=== PATIENT | female | born 1965 | race Caucasian/White ===

== ENCOUNTER → 2016-04-12 | Outpatient (CLI) | payer BC ==
[~2016-04-12] MED LIST: ANAS1TAB19 PO; BUPR200T2 PO; BUSP30TA2; CHOL100010 PO; DULO60CA44 PO; KLN5X; LAMO200T38 PO; LAMO25TA PO
[2016-04-12 14:35] VITALS: BP 108/73; PULSE 70; TEMP 36.8; O2SAT 96
--- NOTE | 2016-04-12 15:42 | Radiation Oncology Follow-Up ---
Radiation Oncology Follow-Up Date of Visit Apr 12, 2016. Reason For Visit Annual follow-up Radiation Completion Date finished 08-06-2014 Diagnosis (1) Breast cancer Status: Resolved Onset Date: 05/06/2014 Location: right breast Histology Subtype: ductal Stage: l (A) Permanent Comment: Status post bilateral breast reduction surgery Abnormal right breast mammogram 04/17/2014 Status post core biopsy 05/06/2014 revealing invasive ductal carcinoma grade 1 Estrogen receptor positive, progesterone receptor positive, HER-2/angelita negative Status post partial mastectomy with sentinel lymph node biopsy 06/03/2014 Pathologic stage [id number] BRCA1 and BRCA2 testing negative Oncotype DX score of 22 Status post completion of radiation therapy 08/06/2014 utilizing accelerated partial breast treatment received 3850 cGy Last Edited By: Neeta Nieves on Apr 12, 2016 15:16 History of Present Illness Ms. Comer is a 51-year-old female with a remote family history of breast cancer. The patient's maternal grandmother had breast cancer with metastatic disease to the bone. She has been followed with screening mammograms. These include studies on 08/23/2009 11/10/2010 and 11/29/2011. All these were performed at [facility]. On 04/17/2014 the patient underwent bilateral screening mammograms. In the right breast a mild asymmetry versus possible summation at the middle depth 9 o'clock position was noted. Additional projections and spot compression views were recommended. On 01/26/2015 patient underwent a right breast unilateral limited diagnostic mammogram and targeted breast ultrasound. These studies showed a solid mass measuring 0.4 x 0.4 x 0.4 cm located at the site of a mammographic abnormality at Patient: RYLEE COMER Admit Date: 07/17/14 [facility] Rec: [id number] Acct ID: [id number] Page: 1 the 9 o'clock position 4 cm from the nipple. These were felt to be suspicious for malignancy and a biopsy was recommended. The patient underwent a biopsy on 05/11/2014 through [facility] that revealed an invasive ductal carcinoma nuclear grade 1. The biopsy was of the right breast 9 o'clock position 3-4 cm from the nipple. Estrogen receptors were strongly positive (100%) progesterone receptors were moderately positive (50%). HER-2/ angelita uncle protein expression is negative by IHC. Accession #: [id number]. The patient underwent staging bilateral breast MRIs on 05/19/2014. In the right breast middle one third depth 9 o'clock position and area of masslike enhancement was noted measuring 0.8 x 0.7 x 0.5 cm compatible with the patient's biopsyproven malignancy. This mass is 5.2 cm posterior to the nipple and 3.2 cm anterior to the chest wall. The remainder of the right breast is normal. Left breast reveals no abnormal enhancements no left axillary adenopathy. No right axillary adenopathy was appreciated. The slides from [facility] reviewed at the [facility]. It confirmed invasive ductal carcinoma NOS nuclear grade 1 with no lymphovascular invasion, ER positive CA positive HER-2/ angelita negative. AG 0S [id number]. The patient proceeded with a right breast lumpectomy at the [facility] on 06/03/2014. A sentinel lymph node was obtained and was negative. The partial mastectomy specimen confirmed invasive ductal carcinoma moderate nuclear grade with DCIS solid type moderate nuclear grade. The margins were ultimately negative. AG [id number]. AJCC pathologic stage was pT1a pN0. An Oncotype DX test was ordered. This ultimately came back with a recurrent score of 22 placing her in the low intermediate risk category with a 10 year risk of distant recurrence with tamoxifen alone of 14%. Based on this information no adjuvant chemotherapy was recommended with adjuvant hormonal therapy recommended. Patient was seen by Dr. Sarmiento for discussion of the role of adjuvant therapy. He noted the patient had undergone BRCA1 and BRCA2 mutation testing and this was negative no chemotherapy was again recommended and hormonal therapy was suggested that this would start once she has completed her adjuvant radiation. She was found to be a good candidate for accelerated partial breast treatment. She received 3850 cGy completed 08/06/2014. Interim History She's been doing well over this past year. She denies any changes to her breast. She has noted no masses or tenderness no change of the axilla. She's had no swelling of her arm. She was last seen and had mammography in [place] May of last year. She is going to check her schedule but she is quite certain that she has an appointment and a mammogram scheduled for May of this year. She is on Arimidex and denies side effects. Allergies Coded Allergies: Ampicillin (Unverified Allergy, Intermediate, hives, 07/17/14) Home Medications Scheduled Anastrozole (Arimidex), 1 MG PO DAILY Bupropion (Wellbutrin Sr), 200 MG PO DAILY Buspirone Hcl (Buspirone Hcl), DAILY Cholecalciferol (Vitamin D), 5,000 INTER.UNIT PO DAILY Clonazepam (Clonazepam), prn Duloxetine Hcl (Cymbalta), 90 MG PO DAILY Lamotrigine (Lamictal), 200 MG PO AM Lamotrigine (Lamictal), 50 MG PO HS Review of Systems Gastrointestinal: Symptoms: WNL Oral: Symptoms: No Problems Respiratory: Symptoms: WNL Urinary: Symptoms: Nocturia Comments: occ nocturia Skin: Symptoms: No Problems Breast: Right Upper Arm Measurement: 28.5 Right Mid Arm Measurement: 25.5 Right Wrist Measurement: 16.5 Left Upper Arm Measurement: 30.5 Left Mid Arm Measurement: 24.0 Left Wrist Measurement: 16.7 Arm Dominence: Right Patient Cosmetic Evaluation: Good Staff Cosmetic Evalaluation: Excellent Physical Exam Vital Signs Date Time Temp Pulse Resp B/P Pulse Ox O2 Delivery O2 Flow Rate FiO2 04/12/16 14:35 36.8 70 18 108/73 96 Pain: Side: Bilateral Patient Pain Scale: 0 - 10 Initial Pain Intensity: 0.0 Fatigue: None General Appearance: no apparent distress Eyes: normal inspection, EOMI ENT: normal ENT inspection, hearing grossly normal Neck: no adenopathy Respiratory/Chest: lungs clear, no respiratory distress, no accessory muscle use Breast: Breast examination reveals bilateral breast reduction. On the right there are no masses or tenderness no axillary adenopathy. She has no hyperpigmentation. There are no skin retractions. Left breast shows no masses or tenderness and no axillary adenopathy. Using the Bangor score cosmesis she has a an excellent outcome. Cardiovascular: regular rate, rhythm, no gallop, no murmur Abdomen: non tender Extremities: no pedal edema Neurologic/Psychiatric: no motor/sensory deficits, alert, normal mood/affect Skin: warm/dry Lymphatic: no adenopathy Additional Studies She had a mammogram 05/28/2015 at [facility]. This showed no finding of malignancy bilaterally recommendation was for annual mammogram. BI-RADS Category 2 Assessment & Plan Plan: Continue annual mammography and follow-up visits in [place]. This is scheduled for March. Continue regular follow-up with her PCP. She also follows with Dr. Sarmiento medical oncology. She continues on Arimidex. We asked her to return to our office in 1 year. She may call if she has any questions or concerns in the interim. Total Time In Follow-Up I spent 15 minutes speaking to the patient performing examination. I sent 15 minutes reviewing information and completing this note. Copy To Addy Song M.D.; Sridhar Sarmiento M.D.
== END | disposition home or self-care (01) ==
LOC: C.ONC 14:27
PROVIDERS: ATTEND Radiology Radiation Oncology
DX: Z08 Encounter for follow-up examination after completed treatment for malignant neoplasm (principal); Z92.3 Personal history of irradiation; Z85.3 Personal history of malignant neoplasm of breast

== ENCOUNTER → 2017-04-17 | Outpatient (CLI) | payer OTHER ==
[~2017-04-17] MED LIST changes: +LAMO200T35 PO; -LAMO200T38 PO
[2017-04-17 14:30] VITALS: BP 125/56; PULSE 56; TEMP 36.2; O2SAT 97
--- NOTE | 2017-04-17 17:00 | Radiation Oncology Follow-Up ---
Radiation Oncology Follow-Up Date of Visit Apr 17, 2017. Reason For Visit Annual follow-up Radiation Completion Date 08/06/14 Diagnosis (1) Breast cancer Status: Resolved Onset Date: 05/06/2014 Histology Subtype: ductal Stage: l (A) Permanent Comment: Status post bilateral breast reduction surgery Abnormal right breast mammogram 04/17/2014 Status post core biopsy 05/06/2014 revealing invasive ductal carcinoma grade 1 Estrogen receptor positive, progesterone receptor positive, HER-2/angleita negative Status post partial mastectomy with sentinel lymph node biopsy 06/03/2014 Pathologic stage [id number] BRCA1 and BRCA2 testing negative Oncotype DX score of 22 Status post completion of radiation therapy 08/06/2014 utilizing accelerated partial breast treatment received 3850 cGy Last Edited By: Neeta Nieves on Apr 12, 2016 15:16 History of Present Illness Ms. Comer is a 51-year-old female with a remote family history of breast cancer. The patient's maternal grandmother had breast cancer with metastatic disease to the bone. She has been followed with screening mammograms. These include studies on 08/23/2009 11/10/2010 and 11/29/2011. All these were performed at [facility]. On 04/17/2014 the patient underwent bilateral screening mammograms. In the right breast a mild asymmetry versus possible summation at the middle depth 9 o'clock position was noted. Additional projections and spot compression views were recommended. On 01/26/2015 patient underwent a right breast unilateral limited diagnostic mammogram and targeted breast ultrasound. These studies showed a solid mass measuring 0.4 x 0.4 x 0.4 cm located at the site of a mammographic abnormality at Patient: RLYEE COMER Admit Date: 07/17/14 [facility] Rec: [id number] Acct ID: [id number] Page: 1 the 9 o'clock position 4 cm from the nipple. These were felt to be suspicious for malignancy and a biopsy was recommended. The patient underwent a biopsy on 05/11/2014 through [facility] that revealed an invasive ductal carcinoma nuclear grade 1. The biopsy was of the right breast 9 o'clock position 3-4 cm from the nipple. Estrogen receptors were strongly positive (100%) progesterone receptors were moderately positive (50%). HER-2/ angelita uncle protein expression is negative by IHC. Accession #: [id number]. The patient underwent staging bilateral breast MRIs on 05/19/2014. In the right breast middle one third depth 9 o'clock position and area of masslike enhancement was noted measuring 0.8 x 0.7 x 0.5 cm compatible with the patient's biopsyproven malignancy. This mass is 5.2 cm posterior to the nipple and 3.2 cm anterior to the chest wall. The remainder of the right breast is normal. Left breast reveals no abnormal enhancements no left axillary adenopathy. No right axillary adenopathy was appreciated. The slides from [facility] reviewed at the [facility]. It confirmed invasive ductal carcinoma NOS nuclear grade 1 with no lymphovascular invasion, ER positive [place] positive HER-2/ angelita negative. AG [id number] [id number]. The patient proceeded with a right breast lumpectomy at the [facility] on 06/03/2014. A sentinel lymph node was obtained and was negative. The partial mastectomy specimen confirmed invasive ductal carcinoma moderate nuclear grade with DCIS solid type moderate nuclear grade. The margins were ultimately negative. AG [id number]. AJCC pathologic stage was pT1a pN0. An Oncotype DX test was ordered. This ultimately came back with a recurrent score of 22 placing her in the low intermediate risk category with a 10 year risk of distant recurrence with tamoxifen alone of 14%. Based on this information no adjuvant chemotherapy was recommended with adjuvant hormonal therapy recommended. Patient was seen by Dr. Sarmiento for discussion of the role of adjuvant therapy. He noted the patient had undergone BRCA1 and BRCA2 mutation testing and this was negative no chemotherapy was again recommended and hormonal therapy was suggested that this would start once she has completed her adjuvant radiation. She was found to be a good candidate for accelerated partial breast treatment. She received 3850 cGy completed 08/06/2014. Interim History She's been doing well over the past year. She denies any changes to her breast. She denies any areas of tenderness. She is noted no masses and no change of the axilla. She's had no swelling of her arm. She is up-to-date on mammography. She continues follow-up in [place] with recheck visits and mammography. Her last visit was in December. She had a mammogram 12/27/2016. Left and right breast both are benign no evidence of malignancy. Interval follow-up is 12 months. BI-RADS Category 2. She continues follow-up with Dr. Sarmiento in medical oncology. She is on Arimidex and denies side effects. Allergies Coded Allergies: Ampicillin (Unverified Allergy, Intermediate, hives, 07/17/14) Home Medications Scheduled Anastrozole (Arimidex), 1 MG PO DAILY Bupropion (Wellbutrin Sr), 200 MG PO DAILY Buspirone Hcl (Buspirone Hcl), DAILY Cholecalciferol (Vitamin D), 5,000 INTER.UNIT PO DAILY Clonazepam (Clonazepam), prn Duloxetine Hcl (Cymbalta), 90 MG PO DAILY Lamotrigine (Lamictal), 200 MG PO AM Lamotrigine (Lamictal), 50 MG PO HS Review of Systems Gastrointestinal: Symptoms: WNL Oral: Symptoms: No Problems Respiratory: Symptoms: WNL Urinary: Symptoms: WNL Comments: occ nocturia Skin: Symptoms: No Problems Breast: Right Upper Arm Measurement: 28.0 Right Mid Arm Measurement: 24.0 Right Wrist Measurement: 16.0 Left Upper Arm Measurement: 29.0 Left Mid Arm Measurement: 24.5 Left Wrist Measurement: 16.5 Arm Dominence: Right Patient Cosmetic Evaluation: Good Staff Cosmetic Evalaluation: Excellent Physical Exam Vital Signs Date Time Temp Pulse Resp B/P (MAP) Pulse Ox O2 Delivery O2 Flow Rate FiO2 04/17/17 14:30 36.2 56 16 125/56 97 Fatigue: None General Appearance: no apparent distress Eyes: normal inspection, EOMI ENT: normal ENT inspection, hearing grossly normal Neck: no adenopathy, thyroid normal Respiratory/Chest: lungs clear, no respiratory distress, no accessory muscle use Breast: Breast examination reveals bilateral postoperative changes from breast reduction surgery. There are no masses or tenderness and no axillary adenopathy. She has no telangiectasia or skin retractions. There are no nipple changes. Using the Jefferson score cosmesis she has a in excellent outcome. Cardiovascular: regular rate, rhythm, no gallop, no murmur Abdomen: non tender, soft Extremities: no pedal edema Neurologic/Psychiatric: no motor/sensory deficits, alert, normal mood/affect Skin: warm/dry Pain Management Patient Reports Pain: No Side: Bilateral Pain Location: None Patient Preferred Pain Scale: 0 - 10 Initial Pain Intensity: 0.0 Pain Management Plan She denies pain therefore requires no pain management. Laboratory Laboratory Results: not applicable Pathology Pathology Results: not applicable Imaging Imaging Studies: were reviewed Imaging Comments Reviewed in the interim history. Assessment & Plan Plan: Continue follow-up mammography. Continue regular follow-up with medical oncology and her primary care physician. We asked her to return to our office in 1 year. She may call if she has any questions or concerns in the interim. Total Time In Follow-Up I spent 20 minutes speaking to the patient performing examination. I spent 15 minutes reviewing information in completing this note. [place] Copy To Addy Song M.D.; Sridhar Sarmiento M.D. Problem Qualifiers (1) Breast cancer: Breast location: central portion of breast Estrogen receptor status: positive Patient sex: female Laterality: right Qualified Codes: C50.111 - Malignant neoplasm of central portion of right female breast; Z17.0 - Estrogen receptor positive status [ER+]
== END | disposition home or self-care (01) ==
LOC: C.ONC 14:17
PROVIDERS: ATTEND Physician Assistant Medical
DX: Z08 Encounter for follow-up examination after completed treatment for malignant neoplasm (principal); Z92.3 Personal history of irradiation; Z85.3 Personal history of malignant neoplasm of breast